=== PATIENT | female | born 1960 | race Caucasian/White ===

== ENCOUNTER 2020-05-27 10:45 | Outpatient (RCR) | payer OTHER ==
[~2020-05-27] VITALS: Ht 160 cm; Wt 136.4 kg
[~2020-05-27 10:45] MED LIST: ASP81TEC PO; CPR500T PO; ENAL20TA PO; HYDR-3720 PO; METR500T PO; NORT25CA PO; SENN1TAB76 PO
[2020-05-27] MEDS ORDERED: ASPI-808 PO (11:16)
[2020-05-27] MEDS ORDERED: CELE200C PO (11:16)
[2020-05-27] MEDS ORDERED: ATOR20TA66 PO (11:16)
[2020-05-27] MEDS ORDERED: FURO20TA4 PO (11:16)
[2020-05-27] MEDS ORDERED: GBPN600T PO (11:16)
[2020-05-27] MEDS ORDERED: LATA2.5D5 OU (11:16)
[2020-05-27] MEDS ORDERED: AMLO-251 PO (11:16)
[2020-05-27] MEDS ORDERED: BUPR150T7 PO (11:16)
[2020-05-27] MEDS ORDERED: ACHD5005 PO (11:16)
[2020-05-27] MEDS ORDERED: NORT75CA PO (11:16)
== END 2020-05-27 11:20 | disposition home or self-care (01) ==
LOC: PREOP 10:45
PROVIDERS: ATTEND Otolaryngology Otolaryngology/Facial Plastic Surgery
DX: Z01.818 Encounter for other preprocedural examination (principal)

== ENCOUNTER 2020-06-03 08:10 | Day surgery (SDC) | payer MEDICARE, OTHER ==
[2020-06-03] VITALS (10 sets, daily range): BP systolic 98–178; BP diastolic 54–92
[~2020-06-03] VITALS: Ht 160 cm; Wt 136.0 kg
[~2020-06-03 08:10] MED LIST changes: +ACHD5005 PO; +AMLO-251 PO; +ASPI-808 PO; +ATOR20TA66 PO; +BUPR150T7 PO; +CELE200C PO; +FURO20TA4 PO; +GBPN600T PO; +LATA2.5D5 OU; +NORT75CA PO
[2020-06-03] MEDS ORDERED: ceFAZolin INJECTION 1,000 MG in WATER (STERILE) FOR INJECTION 10 ML IV ONE (08:30)
[2020-06-03] MEDS: LACTATED RINGERS 1,000 ML IV PRN ×2 (08:52→12:00)
[2020-06-03] MEDS ORDERED: fentaNYL INJECTION 100 MCG/2 ML AMP ONE (10:32)
[2020-06-03] MEDS ORDERED: MIDAZOLAM 2 MG/2 ML (VERSED) VIAL ONE (10:32)
[2020-06-03] MEDS ORDERED: proPOfol 200 MG/20 ML (DIPRIVAN) VIAL IV ONE (10:37)
[2020-06-03] MEDS ORDERED: LIDOCAINE PF 2% 5 ML (XYLOCAINE) VIAL ONE (10:37)
[2020-06-03] MEDS ORDERED: SEVOFLURANE (ULTANE) 15 ML INHAL SOLN ONE (10:38)
[2020-06-03] MEDS ORDERED: ONDANSETRON 4 MG/2 ML (SDV) Z0FRAN ONE (10:38)
[2020-06-03] MEDS ORDERED: LIDOCAINE/EPI 1%-1:100,000 (XYLOCAINE) 20ML ONE (11:22)
[2020-06-03] MEDS ORDERED: ceFAZolin INJECTION 1,000 MG ONE (11:28)
[2020-06-03] MEDS ORDERED: WATER (STERILE) FOR INJECTION 10 ML ONE (11:28)
--- NOTE | 2020-06-03 11:39 | Progress Note-Pre Operative ---
Pre-Operative Progress Note H&P Reviewed The H&P was reviewed, patient examined and no changes noted. Date Seen by Provider: Jun 03, 2020 Time Seen by Provider: : Date H&P Reviewed: Jun 03, 2020 Time H&P Reviewed: : Pre-Operative Diagnosis: Multiple Facial Lesions, Right Cheek Mass NANDO CHOPRA MD Jun 03, 2020 11:39
--- NOTE | 2020-06-03 11:40 | Progress Note-Post Operative ---
Post-Operative Progess Note Surgeon (s)/Operations Processor (s) Surgeon NANDO CHOPRA MD Operations Processor n/a Pre-Operative Diagnosis Multiple Facial Lesions, Right Cheek Mass Post-Operative Diagnosis same Post-Op Procedure Note Date of Procedure: Jun 03, 2020 Name of Procedure Performed: Excision of Multiple Left Facial Lesions with INtermediate Repair, Excision of Medial Right Cheek Mass with Intermediate Repair Description & Findings Description and Findings: n/a Anesthesia Type gen lkam Estimated Blood Loss minimal Packing none. Specimen(s) collected/removed 3 left cheek lesions ssent separtely i right cheek mass NANDO CHOPRA MD Jun 03, 2020 11:40
[2020-06-03] MEDS ORDERED: ACETAMINOPHEN 325 MG TABLET PO PRN (11:45)
[2020-06-03] MEDS ORDERED: HYDROcodone/APAP 5 MG/325 MG (LORTAB) TAB PO PRN (11:45)
[2020-06-03] MEDS ORDERED: PHENYLEPHRINE 100 MCG/ML 10 ML (ANESTHESIA) SYR ONE (12:11)
[2020-06-03] MEDS ORDERED: MUPIROCIN 2% OINT 22 GM (BACTROBAN) TUBE ONE (12:27)
[2020-06-03] MEDS ORDERED: BSS 15 ML ONE (12:27)
[2020-06-03] MEDS ORDERED: PROMETHAZINE INJ 25 MG/ML (PHENERGAN) AMP IVP ONE (12:45)
[2020-06-03] MEDS ORDERED: ONDANSETRON 4 MG/2 ML (SDV) Z0FRAN IVP PRN (12:45)
[2020-06-03] MEDS ORDERED: fentaNYL INJECTION 100 MCG/2 ML AMP IVP ONE (12:45)
--- NOTE | 2020-06-03 13:40 | Anesthesia-General Post-Op ---
General Patient Condition Mental Status/LOC: Same as Preop Cardiovascular: Satisfactory Nausea/Vomiting: Absent Respiratory: Satisfactory Pain: Controlled Complications: Absent Post Op Complications Complications None Follow Up Care/Instructions Patient Instructions None needed. Anesthesia/Patient Condition Patient Condition Patient is doing well, no complaints, stable vital signs, no apparent adverse anesthesia problems. No complications reported per nursing. SONYA NAVA CRNA Jun 03, 2020 13:39
[2020-06-03] MEDS ORDERED: CEPH-507 PO (13:41)
[2020-06-03] MEDS ORDERED: ACHD5005 PO (13:41)
== END 2020-06-03 14:40 ==
LOC: SDC 08:10
PROVIDERS: ATTEND Otolaryngology Otolaryngology/Facial Plastic Surgery
DX: D22.39 Melanocytic nevi of other parts of face (principal); L72.0 Epidermal cyst; I10 Essential (primary) hypertension; M06.9 Rheumatoid arthritis, unspecified; Z79.899 Other long term (current) drug therapy; E66.01 Morbid (severe) obesity due to excess calories; Z68.43 Body mass index [BMI] 50.0-59.9, adult; Z88.8 Allergy status to other drugs, medicaments and biological substances; Z91.048 Other nonmedicinal substance allergy status; Z88.5 Allergy status to narcotic agent
CPT/HCPCS: 87081; 88305